=== PATIENT | male | born 1985 ===

== ENCOUNTER 2025-03-25 07:01 | Outpatient (CLI) | payer OTHER, SELFPAY ==
--- NOTE | 2025-03-25 07:15 | CRLHL7_ITS ---
For Patients: As a result of the Cures Act, medical imaging exams and procedure reports are released immediately into your electronic medical record. You may view this report before your referring provider. If you have questions, please contact your health care provider. Examination: US abdominal aorta Indication: Pulse in abdomen. Technique: Kwok scale and color Doppler images of the aorta and common iliac arteries are obtained. Comparison: None Findings: Proximal aorta: 1.9 x 2.2 cm Mid aorta: 1.8 x 2.2 cm Distal aorta: 1.9 x 2.1 cm Right common iliac artery: 1.2 x 1.3 cm Left common iliac artery: 1.2 x 1.3 cm Impression: Normal ultrasound of the aorta. Dictated by Horacio King MD @ 03/25/2025 9:23:23 AM (Electronically Signed)
== END 2025-03-25 07:02 | disposition home or self-care (01) ==
LOC: US 07:02
PROVIDERS: Visit Provider Nurse Practitioner Family
DX: Z13.6 Encounter for screening for cardiovascular disorders (principal); R10.9 Unspecified abdominal pain
CPT/HCPCS: 76706